=== PATIENT | male | born 1985 | race African-American/Black ===

== ENCOUNTER 2016-10-27 18:40 | Emergency (ER) | payer SELFPAY ==
[2016-10-27 18:50] VITALS: BP 136/85; PULSE 65; TEMP 98.5; BMI 27.4
--- NOTE | 2016-10-27 19:33 | PDOC ---
History of Present Illness - General History Source: Patient Exam Limitations: No Limitations - History of Present Illness Initial Comments: 10/27/16 20:43 Patient is a 30 year old male with a significant past medical history of who presents to the ED with a complaint of diffuse abdominal pain that began this morning. Patient reports abdominal pain beginning this morning suddenly. Patient states the abdominal pain is a 6/10 in intensity. He reports intermittent episodes of nausea secondary to the Abdominal pain. Patient reports diagnoses of H.Pylori bacteria by Dr. Bowser last april and states that this pain feels similar. He reports chronic RUQ pain that he states he does not know if it is related to the past H.pylori or current abdominal pain. Patient reports not eating intensifies the pain while eats seems to offer slight relief. He states having slight fever last week that subsided before getting the burning abdominal pain. Denies chest pain, SOB. Denies dysuria, constipation, diarrhea. Denies vomiting. Denies any other symptoms. Allergies: No allergies Social history: Marijuana smoker. Occasional tobacco smoker. Social drinker. Surgical history: None PMD: Dr. Bowser <Venancio Carl - Last Filed: 10/27/16 20:43> <Shari Leal - Last Filed: 10/28/16 06:31> - General Chief Complaint: Pain Stated Complaint: ABD PAIN Time Seen by Provider: 10/27/16 19:13 Past History <Venancio Carl - Last Filed: 10/27/16 20:43> - Past Medical History GI Disorders: Yes (H/O H. PYLORI) - Suicide/Smoking/Psychosocial Hx Smoking History: Never smoked Have you smoked in the past 12 months: No Information on smoking cessation initiated: No Hx Alcohol Use: (occasional) Substance Use Type: None <Shari Leal - Last Filed: 10/28/16 06:31> - Past Medical History Allergies/Adverse Reactions: Allergies Allergy/AdvReac Type Severity Reaction Status Date / Time No Known Allergies Allergy Verified 10/27/16 18:42 Home Medications: Ambulatory Orders Pantoprazole Sodium [Protonix -] 20 mg PO DAILY #20 tablet.ec 10/27/16 Review of Systems - Review of Systems Able to Perform ROS?: Yes Comments:: 10/27/16 20:43 GENERAL/CONSTITUTIONAL: No fever or chills. No weakness. HEAD, EYES, EARS, NOSE AND THROAT: No change in vision. No ear pain or discharge. No sore throat. GASTROINTESTINAL: + Nausea. No vomiting, diarrhea or constipation. GENITOURINARY: No dysuria, frequency, or change in urination. CARDIOVASCULAR: No chest pain or shortness of breath. RESPIRATORY: No cough, wheezing, or hemoptysis. MUSCULOSKELETAL: +Abdominal pain. No joint or muscle swelling or pain. No neck or back pain. SKIN: No rash NEUROLOGIC: No headache, vertigo, loss of consciousness, or change in strength/ sensation. ENDOCRINE: No increased thirst. No abnormal weight change. HEMATOLOGIC/LYMPHATIC: No anemia, easy bleeding, or history of blood clots. ALLERGIC/IMMUNOLOGIC: No hives or skin allergy. All Other Systems: Reviewed and Negative <Venancio Carl - Last Filed: 10/27/16 20:43> *Physical Exam - Vital Signs Last Vital Signs Temp Pulse Resp BP Pulse Ox 98.5 F 65 18 136/85 98 10/27/16 18:40 10/27/16 18:40 10/27/16 18:40 10/27/16 18:40 10/27/16 18:40 - Physical Exam Comments: 10/27/16 20:44 GENERAL: Awake, alert, and fully oriented, in no acute distress HEAD: No signs of trauma EYES: PERRLA, EOMI, sclera anicteric, conjunctiva clear ENT: Auricles normal inspection, hearing grossly normal, nares patent, oropharynx clear without exudates. Moist mucosa NECK: Normal ROM, supple, no lymphadenopathy, JVD, or masses LUNGS: Breath sounds equal, clear to auscultation bilaterally. No wheezes, and no crackles HEART: Regular rate and rhythm, normal S1 and S2, no murmurs, rubs or gallops ABDOMEN: + Mild RUQ tenderness. + Epigastric tenderness. No mass. No peritoneal signs. Soft, normoactive bowel sounds. No guarding, no rebound. EXTREMITIES: Normal range of motion, no edema. No clubbing or cyanosis. No cords, erythema, or tenderness NEUROLOGICAL: Cranial nerves II through XII grossly intact. Normal speech, normal gait SKIN: Warm, Dry, normal turgor, no rashes or lesions noted. <Venancio Carl - Last Filed: 10/27/16 20:43> - Vital Signs Last Vital Signs Temp Pulse Resp BP Pulse Ox 98.5 F 65 18 136/85 98 10/27/16 18:40 10/27/16 18:40 10/27/16 18:40 10/27/16 18:40 10/27/16 18:40 <Shari Leal - Last Filed: 10/28/16 06:31> ED Treatment Course - LABORATORY CBC & Chemistry Diagram: 10/27/16 19:40 10/27/16 19:40 - ADDITIONAL ORDERS Additional order review: Laboratory Results 10/27/16 10/27/16 19:40 19:40 Sodium 137 Potassium 4.1 Chloride 102 Carbon Dioxide 29 H Anion Gap 6 L BUN 18 Creatinine 1.2 Creat Clearance w eGFR > 60 Random Glucose 89 Calcium 9.5 Total Bilirubin 0.5 AST 19 ALT 24 Alkaline Phosphatase 75 Total Protein 7.0 Albumin 4.3 Lipase < 20 L 10/27/16 19:40 RBC 5.33 MCV 82.3 MCHC 32.7 RDW 13.1 MPV 9.2 Neutrophils % 45.6 Lymphocytes % 41.4 H Monocytes % 7.0 Eosinophils % 3.4 Basophils % 2.6 H - Medications Given in the ED: ED Medications Discontinued Medications Generic Name Dose Route Start Last Admin Trade Name Ebonie PRN Reason Stop Dose Admin Pantoprazole Sodium 40 mg/ 100 mls @ 200 mls/hr 10/27/16 19:35 10/27/16 19:48 Sodium Chloride IVPB 10/27/16 20:04 200 mls/hr ONCE ONE Administration <Venancio Carl - Last Filed: 10/27/16 20:43> - LABORATORY CBC & Chemistry Diagram: 10/27/16 19:40 10/27/16 19:40 <Shari Leal - Last Filed: 10/28/16 06:31> Progress Note - Progress Note Progress Note: Documentation has been prepared under my direction and personally reviewed by me in its entirety. I attest that this documented accurately reflects all work, treatment, procedures and medical decision making performed by me. <Shari Leal - Last Filed: 10/28/16 06:31> Medical Decision Making - Medical Decision Making As noted above, this 30-year-old man with a history of H. pylori gastritis, treated in April of this year presents with burning epigastric pain. He also has some right upper quadrant pain that is intermittent. Exam as noted above. Patient had gallbladder ultrasound to rule out biliary disease. No evidence of gallstones or other acute pathology in the biliary tract. Laboratory evaluation was essentially normal. Patient feels significantly better after Protonix 40 mg IV. Patient will be discharged with instructions to follow-up with splicing supervisor (Dr. Jay Adair referral information provided for the patient. Meanwhile, Protonix 20 mg PO prescription was transmitted to the patient's pharmacy. <Shari Leal - Last Filed: 10/28/16 06:31> *DC/Admit/Observation/Transfer - Attestations Scribe Attestion: 10/27/16 20:44 Documentation prepared by Venancio Carl, acting as medical transcription radiology for Shari Leal MD/DO. <Venancio Carl - Last Filed: 10/27/16 20:43> <Shari Leal - Last Filed: 10/28/16 06:31> Diagnosis at time of Disposition: Acute gastritis Qualifiers: Gastritis type: unspecified gastritis Gastritis bleeding: without bleeding Qualified Code(s): K29.00 - Acute gastritis without bleeding - Discharge Dispostion Disposition: HOME Condition at time of disposition: Stable - Prescriptions Prescriptions: Pantoprazole Sodium [Protonix -] 20 mg PO DAILY #20 tablet.ec - Referrals Referrals: Jay Adair MD [Staff Physician] - 1 week - Patient Instructions Printed Discharge Instructions: Gastritis Additional Instructions: Protonix 20 mg daily Avoid alcohol/tobacco/proximal long periods without eating food Return if you have severe pain/vomiting/fever follow-up with Dr. Adair (splicing supervisor) within the next week
[2016-10-27] MEDS ORDERED: PANTOPRAZOLE SODIUM 40 MG in SODIUM CHLORIDE 100 ML IVPB ONE (19:35)
[2016-10-27] MEDS ORDERED: PANTOPRAZOLE SODIUM 40 MG VIAL ONE (19:44)
[2016-10-27 19:55] LABS: BASOPHIL 2.6 % (0-2.0); EOSINOPHIL 3.4 % (0-4.5); MCH 26.9 pg (25.7-33.7); MCHC 32.7 g/dl (32.0-35.9); MEAN CELL VOLUME 82.3 fl (80-96); MEAN PLT VOLUME 9.2 fl (7.5-11.1); NEUTROPHILS 45.6 % (42.8-82.8); PLATELET COUNT 223 K/MM3 (134-434); RDW 13.1 % (11.9-15.9); WHITE BLOOD COUNT 5.8 K/mm3 (4.0-10.8)
[2016-10-27 20:26] LABS: ALBUMIN 4.3 g/dl (3.5-5.0); ALK PHOS 75 U/L (32-92); ANION GAP 6 (8-16); BILIRUBIN,TOTAL 0.5 mg/dl (0.2-1.0); CALCIUM 9.5 mg/dl (8.4-10.2); CO2 29 mmol/L (22-28); CREATININE 1.2 mg/dl (0.6-1.3); GLUCOSE,RANDOM 89 mg/dl (74-106); SGOT/AST 19 U/L (10-42); SGPT/ALT 24 U/L (10-40)
== END 2016-10-27 22:15 | disposition home or self-care (01) ==
LOC: FER 18:40
PROC: 3E033GC Introduction of Other Therapeutic Substance into Peripheral Vein, Percutaneous Approach (ICD-10-PCS; principal; 2016-10-27)
DX: K29.00 Acute gastritis without bleeding (principal)
CPT/HCPCS: 36415; 76705-TC; 80053; 83690; 85025; 99283-25

== ENCOUNTER 2017-01-08 18:23 | Emergency (ER) | payer OTHER ==
[2017-01-08 18:48] VITALS: BP 127/81; PULSE 64; TEMP 98.7; BMI 27.3
--- NOTE | 2017-01-08 18:55 | PDOC ---
History of Present Illness <Veronique Gold - Last Filed: 01/08/17 18:53> - History of Present Illness Initial Comments: 01/08/17 18:57 The patient is a 31 year old male, with no significant past medical history, who presents to the emergency department for evaluation of whitish discharge under the foreskin of his penis about 2 weeks ago after having sex with his girlfriend. He reports being monogamous with his girlfriend and states he noticed a white colored discharge in the fold of his foreskin. He denies any pain, dysuria, lesions, or active discharge from his penis now. He reportedly just rinsed it off. He states his girlfriend was diagnosed with bacterial vaginosis around the time of their coitus and presents with concern that he may have an infection. He denies chest pain, shortness of breath, headache and dizziness. He denies fever, chills, nausea, vomit, diarrhea and constipation. He denies dysuria, frequency, urgency and hematuria. Allergies: NKDA Past surgical history: none reported <Clair Quezada - Last Filed: 01/08/17 19:01> - General Chief Complaint: Redness To Affected Area Stated Complaint: PENIS IRRITATION Time Seen by Provider: 01/08/17 18:35 Past History - Past Medical History COPD: No GI Disorders: Yes (H/O H. PYLORI) - Suicide/Smoking/Psychosocial Hx Smoking History: Never smoked Have you smoked in the past 12 months: No Hx Alcohol Use: No Drug/Substance Use Hx: No Substance Use Type: None <Veronique Gold - Last Filed: 01/08/17 18:53> <Clair Quezada - Last Filed: 01/08/17 19:01> - Past Medical History Allergies/Adverse Reactions: Allergies Allergy/AdvReac Type Severity Reaction Status Date / Time No Known Allergies Allergy Verified 01/08/17 18:34 Home Medications: Ambulatory Orders NK [No Known Home Medication] 01/08/17 Review of Systems - Review of Systems Able to Perform ROS?: Yes Is the patient limited Tuvaluan proficient: No Constitutional: No: Chills, Fever, Malaise, Weakness HEENTM: No: Eye Pain, Blurred Vision, Recent change in vision, Double Vision Respiratory: No: Cough, Shortness of Breath Cardiac (ROS): No: Chest Pain, Irregular Heart Rate ABD/GI: Yes: Abdominal cramping. No: Abdominal Distended, Nausea, Vomiting : Yes: Discharge (white discharge under foreskin of penis), Testicular Mass. No: Burning, Dysuria, Flank Pain, Hematuria, Pain, Lesions, Testicular Pain Musculoskeletal: No: Back Pain, Joint Pain Integumentary: No: Bruising, Erythema, Rash Neurological: No: Headache, Numbness, Unsteady Gait Psychiatric: No: Anxiety, Depression Hematologic/Lymphatic: No: Easy Bleeding, Easy Bruising All Other Systems: Reviewed and Negative <Clair Quezada - Last Filed: 01/08/17 19:01> *Physical Exam - Vital Signs Last Vital Signs Temp Pulse Resp BP Pulse Ox 98.7 F 64 15 127/81 100 01/08/17 18:26 01/08/17 18:26 01/08/17 18:26 01/08/17 18:26 01/08/17 18:26 <Veronique Gold S - Last Filed: 01/08/17 18:53> - Vital Signs Last Vital Signs Temp Pulse Resp BP Pulse Ox 98.7 F 64 15 127/81 100 01/08/17 18:26 01/08/17 18:26 01/08/17 18:26 01/08/17 18:26 01/08/17 18:26 - Physical Exam General Appearance: Yes: Nourished, Appropriately Dressed. No: Apparent Distress HEENT: positive: ROMAN, Normal ENT Inspection Neck: positive: Supple. negative: Tender Respiratory/Chest: positive: Lungs Clear, Normal Breath Sounds Cardiovascular: positive: Regular Rhythm, Regular Rate Gastrointestinal/Abdominal: positive: Normal Bowel Sounds. negative: Tender Male Genitalia: positive: normal genitalia (faint discoloration from stretching of foreskin). negative: discharge, testicular tenderness, testicular mass, epididymus tender, inguinal hernia, hernia Musculoskeletal: positive: Normal Inspection Extremity: positive: Normal Capillary Refill, Normal Inspection, Normal Range of Motion Integumentary: positive: Normal Color, Dry, Warm Neurologic: positive: deputy controller II-XII NML intact, Fully Oriented, Alert, Normal Mood/ Affect, Motor Strength 5/5 <Clair Quezada - Last Filed: 01/08/17 19:01> *DC/Admit/Observation/Transfer - Discharge Dispostion Admit: No <Veronique Gold - Last Filed: 01/08/17 18:53> - Attestations Scribe Attestion: 01/08/17 19:01 Documentation prepared by Clair Quezada, acting as medical supervisor for Veronique Gold MD <Clair Quezada - Last Filed: 01/08/17 19:01> Diagnosis at time of Disposition: Balanitis - Discharge Dispostion Disposition: HOME Condition at time of disposition: Good - Referrals Referrals: Cheryl Bowser MD [Primary Care Provider] - - Patient Instructions Printed Discharge Instructions: DI for Balanitis Additional Instructions: Take showers before and after intercourse. Ifyou see any stretching lamb , apply baciacin ointment - Post Discharge Activity
== END 2017-01-08 18:57 | disposition home or self-care (01) ==
LOC: FER 18:23
DX: N48.1 Balanitis (principal)
CPT/HCPCS: 99281-25

== ENCOUNTER 2017-03-21 18:46 | Emergency (ER) | payer OTHER ==
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
[2017-03-21 19:01] VITALS: BP 131/81; PULSE 67; TEMP 98; BMI 267.2
== END 2017-03-21 19:50 | disposition home or self-care (01) ==
LOC: FER 18:46
DX: S63.632A Sprain of interphalangeal joint of right middle finger, initial encounter (principal); W22.01XA Walked into wall, initial encounter; Y93.89 Activity, other specified; Y92.9 Unspecified place or not applicable
CPT/HCPCS: 73140-TC-RT-FY; 99281-25